=== PATIENT | female | born 1985 | race Caucasian/White ===

== ENCOUNTER 2017-07-16 08:16 | Emergency (ER) | payer OTHER ==
[~2017-07-16] VITALS: Ht 162.6 cm; Wt 79.4 kg
[~2017-07-16 08:16] MED LIST: CITRATE OF MAG296 ML PO; DHA100 MG PO; HYDROCODON-ACE1 EAC7 PO; PERCOCET 5-3251 EACH PO; PHENERGAN 25 MG25 M1 PO; PRENATAL PO; ZOFRAN4 MG PO
[2017-07-16] MEDS ORDERED: IMITREX 25 MG T25 M1 PO (11:23)
== END 2017-07-16 11:31 | disposition home or self-care (01) ==
LOC: ER 08:16
DX: R09.81 Nasal congestion (principal); G89.29 Other chronic pain; G43.909 Migraine, unspecified, not intractable, without status migrainosus; Z88.0 Allergy status to penicillin

== ENCOUNTER 2017-10-17 20:02 | Emergency (ER) | payer OTHER ==
[~2017-10-17] VITALS: Ht 162.6 cm; Wt 67.1 kg
[~2017-10-17 20:02] MED LIST changes: +IMITREX 25 MG T25 M1 PO
[2017-10-17] MEDS ORDERED: EFFEXOR 5050 MG/1 T1 PO (20:54)
[2017-10-17] MEDS ORDERED: ADDERALL 15 MG15 MG PO (20:55)
[2017-10-17] MEDS ORDERED: KLONOPIN2 MG SUBLING (20:55)
[2017-10-17] MEDS ORDERED: PRINIVIL10 MG PO (20:56)
[2017-10-17] MEDS ORDERED: CLINDAMYCIN HC150 MG PO (20:56)
[2017-10-17] MEDS ORDERED: NAPROSYN500 MG PO (21:53)
[2017-10-17] MEDS ORDERED: VALIUM5 MG PO (21:53)
[2017-10-17] MEDS ORDERED: REGLAN 10 MG TA10 MG PO (22:07)
[2017-10-17 22:08] VITALS: BP 138/86
== END 2017-10-17 22:21 | disposition home or self-care (01) ==
LOC: ER 20:02
DX: S06.0X9A Concussion with loss of consciousness of unspecified duration, initial encounter (principal); G43.909 Migraine, unspecified, not intractable, without status migrainosus; I10 Essential (primary) hypertension; F90.9 Attention-deficit hyperactivity disorder, unspecified type; F32.9 Major depressive disorder, single episode, unspecified; F41.9 Anxiety disorder, unspecified; Z88.0 Allergy status to penicillin; W22.8XXA Striking against or struck by other objects, initial encounter; Y93.89 Activity, other specified; Y92.59 Other trade areas as the place of occurrence of the external cause; Y99.8 Other external cause status